=== PATIENT | female | born 1990 | race American Indian/Alaskan Native ===

== ENCOUNTER 2017-08-17 12:55 | Emergency (ER) | payer MEDICAID ==
[2017-08-17 13:07] VITALS: BP 127/90
[2017-08-17] MEDS ORDERED: TYLENOL PO ONE (13:07)
== END 2017-08-17 17:19 | disposition left against medical advice (07) ==
LOC: ED 12:55
DX: J02.9 Acute pharyngitis, unspecified (principal); Z53.21 Procedure and treatment not carried out due to patient leaving prior to being seen by health care provider

== ENCOUNTER 2017-10-18 18:22 | Emergency (ER) | payer SELFPAY ==
[2017-10-18 18:53] VITALS: BP 119/87
== END 2017-10-19 05:59 | disposition left against medical advice (07) ==
LOC: ED 18:22
DX: R10.9 Unspecified abdominal pain (principal); R51 Headache; Z53.21 Procedure and treatment not carried out due to patient leaving prior to being seen by health care provider

== ENCOUNTER 2018-04-23 05:27 | Emergency (ER) | payer SELFPAY ==
[2018-04-23 05:52] VITALS: BP 136/83
== END 2018-04-23 06:00 | disposition left against medical advice (07) ==
LOC: ED 05:27
DX: K08.89 Other specified disorders of teeth and supporting structures (principal); Z53.21 Procedure and treatment not carried out due to patient leaving prior to being seen by health care provider

== ENCOUNTER 2019-06-28 09:31 | Emergency (ER) | payer OTHER ==
[2019-06-28] MEDS ORDERED: PERCOCET 5/325 PO ONE (11:39)
[2019-06-28] MEDS ORDERED: DECADRON IM ONE (11:39)
[2019-06-28] MEDS ORDERED: FLEXERIL PO ONE (11:39)
[2019-06-28] MEDS ORDERED: NACL 0.9% 1000 ML 1,000 ML IV ONE (11:40)
--- NOTE | 2019-06-28 11:40 | Emergency Department Report ---
ED Back Pain/Injury HPI - General Chief Complaint: Neck Pain/Injury Stated Complaint: NECK PAIN Time Seen by Provider: 06/28/19 11:39 Source: patient Limitations: No Limitations - History of Present Illness Initial Comments: 28 YO COMES TO ER WITH NECK PAIN. SHE WORKS RETAIL. SHE WOKE UP THIS AM WITH STIFF PAINFUL NECK. IT HAD BEEN HURTING FOR A FEW DAYS BUT NOT THIS BAD. SPASM NOTED ON ARRIVAL TO ACC. NO FALL. NO TRAUMA. NO FEVER. AMBULATORY TOOK NOTHING AT HOME TO DEC PAIN. PAIN IS DESCRIBED TIGHT AND WORSENS WHEN SHE MOVES IT. - Related Data Previous Rx's Medication Instructions Recorded Last Taken Type Cyclobenzaprine [Flexeril] 10 mg PO TID PRN #10 tablet 06/28/19 Unknown Rx predniSONE [Deltasone] 20 mg PO DAILY #5 tablet 06/28/19 Unknown Rx Allergies Allergy/AdvReac Type Severity Reaction Status Date / Time No Known Allergies Allergy Verified 08/15/16 13:14 ED Review of Systems ROS: Stated complaint: NECK PAIN Other details as noted in HPI Comment: All other systems reviewed and negative ED Past Medical Hx - Past Medical History Medical history: no medical history ED Back Pain Physical Exam - Exam General: Vital signs noted. No distress. Alert and acting appropriately. TORTICULLIS OF NECK ON EXAM. PALPABLE SPASM NO FOCAL NEURO DEF NO FEVER NON TOXIC TAKING PO AMBULATORY S1S2 HR 90 ON EXAM LUNGS CTA ABD SOFT NON TENDER NO CVA TENDERNESS LMP 2 W AGO Back/Abdomen: No Abdominal Tenderness, No Perithoracic Tenderness, No Perilumbar Tenderness, No Sacroiliac Tenderness, No Flank Tenderness, No Straight Leg Raise Pain Neuro: Yes Normal Sensation, Yes Normal DTR's, Yes Normal Gait, No Motor Weakness ED Course Vital Signs 06/28/19 09:39 Temperature 98.4 F Pulse Rate 105 H Respiratory 18 Rate Blood Pressure 136/80 [Right] O2 Sat by Pulse 98 Oximetry ED Medical Decision Making - Lab Data Result diagrams: 06/28/19 11:45 06/28/19 11:45 - Medical Decision Making MEDICATED FOR PAIN WITH RELIEF AND FULL ROM OF THE NECK AMBULATORY TAKING PO VSS DC HOME WITH HER SISTER SHE HAS BEEN GIVEN DC FOLLOW UP WITH PCP. Vital Signs 06/28/19 09:39 Temperature 98.4 F Pulse Rate 105 H Respiratory 18 Rate Blood Pressure 136/80 [Right] O2 Sat by Pulse 98 Oximetry - Differential Diagnosis TORTICULIS Critical care attestation.: If time is entered above; I have spent that time in minutes in the direct care of this critically ill patient, excluding procedure time. ED Disposition Clinical Impression: Torticollis Disposition: DC-01 TO HOME OR SELFCARE Is pt being admited?: No Does the pt Need Aspirin: No Condition: Stable Instructions: Spasmodic Torticollis (ED) Additional Instructions: WARM BATHS AND COMPRESSES MEDS ORDERED MOTRIN AND TYLENOL OVER THE COUNTER CAN BE USED FOR MILD PAIN GET A NEW PILLOW [employer] AT WORK ACTIVITY TOLERATED- DO NOT GUARD YOUR NECK - THIS WILL MAKE IT TIGHT AGAIN. Prescriptions: predniSONE [Deltasone] 20 mg PO DAILY #5 tablet Cyclobenzaprine [Flexeril] 10 mg PO TID PRN #10 tablet PRN Reason: Muscle Spasm Referrals: MIYA SAVAGE MD [Staff Physician] - 3-5 Days Time of Disposition: 13:00
[2019-06-28 11:57] LABS: Hematocrit 39.6 % (30.3-42.9); Hemoglobin 13.3 gm/dl (10.1-14.3); Mean Corpuscular HGB Conc 34 % (30-34); Mean Corpuscular Volume 90 fl (79-97); Platelet Count 326 K/mm3 (140-440); Red Blood Count 4.41 M/mm3 (3.65-5.03); Red Cell Distribution Width 13.6 % (13.2-15.2)
[2019-06-28 12:12] LABS: BUN/Creatinine Ratio 13; Blood Urea Nitrogen 9 mg/dL (7-17); Calcium 9.4 mg/dL (8.4-10.2); Hemolysis Index 8
[2019-06-28 14:03] VITALS: BP 113/78
== END 2019-06-28 14:10 | disposition home or self-care (01) ==
LOC: ED 09:31
DX: M43.6 Torticollis (principal)
CPT/HCPCS: 36415; 80048; 84702; 85027; 96372; 99283; J1100; J7030

== ENCOUNTER 2020-12-24 09:59 | Emergency (ER) | payer SELFPAY ==
[2020-12-24] MEDS ORDERED: diphenhydrAMINE 25 MG CAP PO ONE ×2 (11:18→15:03)
[2020-12-24] MEDS ORDERED: METOCLOPRAMIDE 10 MG TAB PO ONE (11:18)
[2020-12-24] MEDS ORDERED: KETOROLAC 10 MG TAB PO ONE (11:18)
--- NOTE | 2020-12-24 11:19 | Emergency Department Report ---
ED General Adult HPI - General Chief complaint: Abdominal Pain Stated complaint: ABD PAIN Time Seen by Provider: 12/24/20 11:12 Source: patient Mode of arrival: Ambulatory Limitations: No Limitations - History of Present Illness Initial comments: Patient is a 30-year-old female presents emergency room complaints of suprapubic abdominal pain that began a couple of days ago. She states it goes between the right and the left side. She states that she is also noticed a small amount of vaginal spotting. She denies any dysuria, vaginal discharge, nausea, vomiting, diarrhea, fever, chills, back pain. She denies any concerns for STDs. She states that she has a past medical history of migraines and has a right frontal headache for the last couple of days, no vision changes, no vomiting, no neck stiffness, no fever, no numbness, no weakness, no speech disturbance, no gait disturbance. No allergies to medications. She states her last menstrual cycle was 12/06/2020. She is not on any control. She states that she had a tubal ligation 4 years ago. Severity scale (0 -10): 9 - Related Data Previous Rx's Medication Instructions Recorded Last Taken Type Cyclobenzaprine [Flexeril] 10 mg PO TID PRN #10 tablet 06/28/19 Unknown Rx predniSONE [Deltasone] 20 mg PO DAILY #5 tablet 06/28/19 Unknown Rx Ketorolac [Toradol] 10 mg PO Q8HR PRN #10 tablet 12/24/20 Unknown Rx Metoclopramide [Reglan] 10 mg PO Q8HR PRN #10 tablet 12/24/20 Unknown Rx diphenhydrAMINE [Benadryl CAP] 25 mg PO Q8HR PRN #10 capsule 12/24/20 Unknown Rx Allergies Allergy/AdvReac Type Severity Reaction Status Date / Time No Known Allergies Allergy Verified 08/15/16 13:14 ED Review of Systems ROS: Stated complaint: ABD PAIN Other details as noted in HPI Comment: All other systems reviewed and negative ED Past Medical Hx - Past Medical History Previous Medical History?: Yes Hx Hypertension: No Hx Congestive Heart Failure: No Hx Diabetes: No Hx Deep Vein Thrombosis: No Hx Renal Disease: No Hx Sickle Cell Disease: No Hx Headaches / Migraines: Yes Hx Seizures: No Hx Asthma: No Hx COPD: No Hx HIV: No - Surgical History Past Surgical History?: Yes Additional Surgical History: TUBAL LIGATION - Social History Smoking Status: Never Smoker Substance Use Type: None - Medications Home Medications: Home Medications Medication Instructions Recorded Confirmed Last Taken Type Cyclobenzaprine [Flexeril] 10 mg PO TID PRN #10 tablet 06/28/19 Unknown Rx predniSONE [Deltasone] 20 mg PO DAILY #5 tablet 06/28/19 Unknown Rx Ketorolac [Toradol] 10 mg PO Q8HR PRN #10 tablet 12/24/20 Unknown Rx Metoclopramide [Reglan] 10 mg PO Q8HR PRN #10 tablet 12/24/20 Unknown Rx diphenhydrAMINE [Benadryl CAP] 25 mg PO Q8HR PRN #10 capsule 12/24/20 Unknown Rx ED Physical Exam - General Limitations: No Limitations General appearance: alert, in no apparent distress - Head Head exam: Present: atraumatic, normocephalic - Eye Eye exam: Present: normal appearance - ENT ENT exam: Present: mucous membranes moist - Respiratory Respiratory exam: Present: normal lung sounds bilaterally. Absent: respiratory distress, wheezes, rales, rhonchi, stridor, chest wall tenderness, accessory muscle use, decreased breath sounds, prolonged expiratory - Cardiovascular Cardiovascular Exam: Present: regular rate, normal rhythm, normal heart sounds. Absent: systolic murmur, diastolic murmur, rubs, gallop - GI/Abdominal GI/Abdominal exam: Present: soft, normal bowel sounds. Absent: distended, tenderness, guarding, rebound, rigid - Neurological Exam Neurological exam: Present: alert, oriented X3, CN II-XII intact, normal gait. Absent: motor sensory deficit - Psychiatric Psychiatric exam: Present: normal affect, normal mood - Skin Skin exam: Present: warm, dry, intact ED Course Vital Signs 12/24/20 12/24/20 10:57 15:55 Temperature 98.1 F Pulse Rate 99 H 64 Respiratory 16 14 Rate Blood Pressure 127/87 112/67 [Right] O2 Sat by Pulse 100 100 Oximetry ED Medical Decision Making - Lab Data Result diagrams: 12/24/20 11:29 12/24/20 11:29 Lab Results 12/24/20 12/24/20 12/24/20 Range/Units 11:29 11:29 11:29 WBC 8.2 (4.5-11.0) K/mm3 RBC 4.18 (3.65-5.03) M/mm3 Hgb 13.4 (10.1-14.3) gm/dl Hct 37.5 (30.3-42.9) % MCV 90 (79-97) fl MCH 32 (28-32) pg MCHC 36 H (30-34) % RDW 13.1 L (13.2-15.2) % Plt Count 343 (140-440) K/mm3 Lymph % (Auto) 11.2 L (13.4-35.0) % [place] % (Auto) 5.5 (0.0-7.3) % Eos % (Auto) 0.0 (0.0-4.3) % Baso % (Auto) 0.7 (0.0-1.8) % Lymph # (Auto) 0.9 L (1.2-5.4) K/mm3 [place] # (Auto) 0.5 (0.0-0.8) K/mm3 Eos # (Auto) 0.0 (0.0-0.4) K/mm3 Baso # (Auto) 0.1 (0.0-0.1) K/mm3 Seg Neutrophils % 82.6 H (40.0-70.0) % Seg Neutrophils # 6.8 (1.8-7.7) K/mm3 Sodium 138 (137-145) mmol/L Potassium 3.5 L (3.6-5.0) mmol/L Chloride 103.3 (98-107) mmol/L Carbon Dioxide 25 (22-30) mmol/L Anion Gap 13 mmol/L BUN 8 (7-17) mg/dL Creatinine 0.7 (0.6-1.2) mg/dL Estimated GFR > 60 ml/min BUN/Creatinine Ratio 11 % Glucose 100 (65-100) mg/dL Calcium 9.2 (8.4-10.2) mg/dL Total Bilirubin 0.40 (0.1-1.2) mg/dL AST 16 (5-40) units/L ALT 12 (7-56) units/L Alkaline Phosphatase 75 (35-129) units/L Total Protein 8.0 (6.3-8.2) g/dL Albumin 4.6 (3.9-5) g/dL Albumin/Globulin Ratio 1.4 % Lipase 24 (13-60) units/L HCG, Quant < 2 (0-4) mIU/mL Urine Color (Yellow) Urine Turbidity (Clear) Urine pH (5.0-7.0) Ur Specific [place] (1.003-1.030) Urine Protein (Negative) mg/dL Urine Glucose (UA) (Negative) mg/dL Urine Ketones (Negative) mg/dL Urine Blood (Negative) Urine Nitrite (Negative) Urine Bilirubin (Negative) Urine Urobilinogen (<2.0) mg/dL Ur Leukocyte Esterase (Negative) Urine WBC (Auto) (0.0-6.0) /HPF Urine RBC (Auto) (0.0-6.0) /HPF U Epithel Cells (Auto) (0-13.0) /HPF Urine Mucus /HPF 12/24/20 Range/Units Unknown WBC (4.5-11.0) K/mm3 RBC (3.65-5.03) M/mm3 Hgb (10.1-14.3) gm/dl Hct (30.3-42.9) % MCV (79-97) fl MCH (28-32) pg MCHC (30-34) % RDW (13.2-15.2) % Plt Count (140-440) K/mm3 Lymph % (Auto) (13.4-35.0) % [place] % (Auto) (0.0-7.3) % Eos % (Auto) (0.0-4.3) % Baso % (Auto) (0.0-1.8) % Lymph # (Auto) (1.2-5.4) K/mm3 [place] # (Auto) (0.0-0.8) K/mm3 Eos # (Auto) (0.0-0.4) K/mm3 Baso # (Auto) (0.0-0.1) K/mm3 Seg Neutrophils % (40.0-70.0) % Seg Neutrophils # (1.8-7.7) K/mm3 Sodium (137-145) mmol/L Potassium (3.6-5.0) mmol/L Chloride (98-107) mmol/L Carbon Dioxide (22-30) mmol/L Anion Gap mmol/L BUN (7-17) mg/dL Creatinine (0.6-1.2) mg/dL Estimated GFR ml/min BUN/Creatinine Ratio % Glucose (65-100) mg/dL Calcium (8.4-10.2) mg/dL Total Bilirubin (0.1-1.2) mg/dL AST (5-40) units/L ALT (7-56) units/L Alkaline Phosphatase (35-129) units/L Total Protein (6.3-8.2) g/dL Albumin (3.9-5) g/dL Albumin/Globulin Ratio % Lipase (13-60) units/L HCG, Quant (0-4) mIU/mL Urine Color Yellow (Yellow) Urine Turbidity Slightly-cloudy (Clear) Urine pH 6.0 (5.0-7.0) Ur Specific [place] 1.030 (1.003-1.030) Urine Protein 30 mg/dl (Negative) mg/dL Urine Glucose (UA) Neg (Negative) mg/dL Urine Ketones 80 (Negative) mg/dL Urine Blood Neg (Negative) Urine Nitrite Neg (Negative) Urine Bilirubin Neg (Negative) Urine Urobilinogen 2.0 (<2.0) mg/dL Ur Leukocyte Esterase Neg (Negative) Urine WBC (Auto) 1.0 (0.0-6.0) /HPF Urine RBC (Auto) 9.0 (0.0-6.0) /HPF U Epithel Cells (Auto) 5.0 (0-13.0) /HPF Urine Mucus 3+ /HPF Vital Signs 12/24/20 12/24/20 10:57 15:55 Temperature 98.1 F Pulse Rate 99 H 64 Respiratory 16 14 Rate Blood Pressure 127/87 112/67 [Right] O2 Sat by Pulse 100 100 Oximetry - Radiology Data Radiology results: report reviewed Ordering Physician: TYRELL RODRIGUEZ Date of Service: 12/24/20 Procedure(s): US transvaginal Accession Number(s): [id number] cc: TYRELL RODRIGUEZ US PELVIC COMPLETE US TRANSVAGINAL INDICATION / CLINICAL INFORMATION: pelvic pain. COMPARISON: None available. FINDINGS: Uterus measures 8.5 x 4.6 x 5.2 cm. Endometrial echo complex measures approximately 12 mm. No endometrial fluid collections are seen. No uterine lesions are identified. Right ovary is unremarkable. There is a 2.6 cm simple cyst in the left ovary. Flow is seen to both ovaries. No adnexal lesions. There is scant free fluid in the cul-de-sac which is likely physiologic. IMPRESSION: 1. No significant abnormality. Endometrial echo complex measures 12 mm which is within normal limits given the patient's age. Signer Name: Michael Quiroz MD Signed: 12/24/2020 1:24 PM Workstation Name: [id number] Transcribed By: SW Dictated By: Michael Quiroz MD Electronically Authenticated By: Michael Quiroz MD Signed Date/Time: 12/24/201323 DD/ 21 TD/TT: - Medical Decision Making Patient is a 30-year-old female presents emergency room complaints of suprapubic abdominal pain that began a couple of days ago. She states it goes between the right and the left side. She states that she is also noticed a small amount of vaginal spotting. She denies any dysuria, vaginal discharge, nausea, vomiting, diarrhea, fever, chills, back pain. She denies any concerns for STDs. She states that she has a past medical history of migraines and has a right frontal headache for the last couple of days, no vision changes, no vomiting, no neck stiffness, no fever, no numbness, no weakness, no speech disturbance, no gait disturbance. No allergies to medications. She states her last menstrual cycle was 12/06/2020. She is not on any control. She states that she had a tubal ligation 4 years ago. Vitals are normal. No abdominal tenderness on exam, no focal neuro deficits, no meningeal signs. Labs are normal. UA is within normal limits. Pelvic ultrasound: 1. No significant abnormality. Endom etrial echo complex measures 12 mm which is within normal limits given the patient's age. Patient given p.o. medications and symptoms significantly improved and she was feeling much better and ready to go home. Symptoms could be related to ovulation. Will refer patient to [facility] regarding bleeding between cycles. Patient's headache has resolved. It appears patient is most likely having cluster headaches as she has pain around the right eye with tearing and rhinorrhea. Given prescription for Benadryl, Reglan, Toradol. Advised patient please take medication as prescribed. increase your water intake. follow up with a primary care doctor. follow up with an FOREIGN CLERK. return to the emergency room for any new or worsening symptoms. - Differential Diagnosis Ovarian cyst, UTI, endometriosis, uterine fibroids, migraine, cluster ESCUDERO Critical care attestation.: If time is entered above; I have spent that time in minutes in the direct care of this critically ill patient, excluding procedure time. ED Disposition Clinical Impression: Pelvic pain, Abnormal uterine bleeding (AUB) Ovarian cyst Qualifiers: Laterality: left Qualified Code(s): N83.202 - Unspecified ovarian cyst, left side Headache Qualifiers: Headache type: unspecified Headache chronicity pattern: acute headache Intractability: not intractable Qualified Code(s): R51.9 - Headache, unspecified Disposition: TO HOME OR SELFCARE Is pt being admited?: No Does the pt Need Aspirin: No Condition: Stable Instructions: Cluster Headache, Ovarian Cyst, Abnormal Uterine Bleeding, [id number], Abdominal Pain (ED) Additional Instructions: please take medication as prescribed. increase your water intake. follow up with a primary care doctor. follow up with an FOREIGN CLERK. return to the emergency room for any new or worsening symptoms. Prescriptions: diphenhydrAMINE [Benadryl CAP] 25 mg PO Q8HR PRN #10 capsule PRN Reason: headache Metoclopramide [Reglan] 10 mg PO Q8HR PRN #10 tablet PRN Reason: headache Ketorolac [Toradol] 10 mg PO Q8HR PRN #10 tablet PRN Reason: pain/headache Referrals: PRIMARY CAREMD [Primary Care Provider] - 2-3 Days REUBEN CALVERT MD [Staff Physician] - 2-3 Days [facility] [Provider Group] - 2-3 Days [facility] [Provider Group] - 2-3 Days Time of Disposition: 15:40 Print Language: BARBADIAN
[2020-12-24 12:17] LABS: Basophils # (Auto) 0.1 K/mm3 (0.0-0.1); Basophils % (Auto) 0.7 % (0.0-1.8); Hematocrit 37.5 % (30.3-42.9); Hemoglobin 13.4 gm/dl (10.1-14.3); Lymphocytes # (Auto) 0.9 K/mm3 (1.2-5.4); Lymphocytes % (Auto) 11.2 % (13.4-35.0); Mean Corpuscular HGB Conc 36 % (30-34); Mean Corpuscular Volume 90 fl (79-97); Monocytes # (Auto) 0.5 K/mm3 (0.0-0.8); Monocytes % (Auto) 5.5 % (0.0-7.3); Platelet Count 343 K/mm3 (140-440); Red Blood Count 4.18 M/mm3 (3.65-5.03); Red Cell Distribution Width 13.1 % (13.2-15.2)
[2020-12-24 12:40] LABS: Alanine Aminotransferase 12 units/L (7-56); Albumin 4.6 g/dL (3.9-5); Blood Urea Nitrogen 8 mg/dL (7-17); Calcium 9.2 mg/dL (8.4-10.2); Hemolysis Index 6
[2020-12-24 13:03] LABS: BUN/Creatinine Ratio 11
--- NOTE | 2020-12-24 13:28 | Ultrasound Report ---
US PELVIC COMPLETE US TRANSVAGINAL INDICATION / CLINICAL INFORMATION: pelvic pain. COMPARISON: None available. FINDINGS: Uterus measures 8.5 x 4.6 x 5.2 cm. Endometrial echo complex measures approximately 12 mm. No endomet rial fluid collections are seen. No uterine lesions are identified. Right ovary is unremarkable. There is a 2.6 cm simple cyst in the left ovary. Flow is seen to both ov ynes. No adnexal lesions. There is scant free fluid in the cul-de-sac which is likely physiologic. IMPRESSION: 1. No significant abnormality. Endometrial echo complex measures 12 mm which is within normal limits given the patient's age. Signer Name: Michael Quiroz MD Signed: 12/24/2020 1:24 PM Workstation Name: [id number]
[2020-12-24] MEDS ORDERED: METOCLOPRAMIDE 10 MG/2 ML INJ ONE (15:02)
[2020-12-24] MEDS ORDERED: KETOROLAC 10 MG TAB ONE (15:03)
[2020-12-24] MEDS ORDERED: METOCLOPRAMIDE 10 MG TAB ONE (15:05)
[2020-12-24 15:30] LABS: Bilirubin,Urine NEG (Negative); Blood,Urine NEG (Negative); Color,Urine Yellow (Yellow); Mucus,Urine 3+ /HPF
[2020-12-24 15:56] VITALS: BP 112/67
== END 2020-12-24 16:23 | disposition home or self-care (01) ==
LOC: ED 09:59
DX: N93.9 Abnormal uterine and vaginal bleeding, unspecified (principal); N83.202 Unspecified ovarian cyst, left side; R51.9 Headache, unspecified; R10.2 Pelvic and perineal pain; Z79.899 Other long term (current) drug therapy; Z98.51 Tubal ligation status
CPT/HCPCS: 36415; 76830; 76856; 80053; 81001; 83690; 84702; 85025; J2765

== ENCOUNTER 2021-03-25 10:21 | Emergency (ER) | payer MEDICAID ==
[2021-03-25 12:10] VITALS: BP 110/83
--- NOTE | 2021-03-25 14:26 | XRay Report ---
RIGHT HAND 4 VIEW(S) INDICATION / CLINICAL INFORMATION: lateral pain, bruising, hit wall COMPARISON: None available. FINDINGS: BONES / JOINT(S): No acute fracture or subluxation. No significant arthritis. SOFT TISSUES: Mild soft tissue swelling over the dorsum of the hand. ADDITIONAL FINDINGS: None. Signer Name: Evens Osorio MD Signed: 03/25/2021 2:21 PM Workstation Name: [id number]
[2021-03-25] MEDS ORDERED: ACETAMINOPHEN 325 MG TAB PO ONE (14:50)
[2021-03-25] MEDS ORDERED: IBUPROFEN 800 MG TAB PO ONE (14:50)
--- NOTE | 2021-03-25 14:54 | Emergency Department Report ---
ED General Adult HPI - General Chief complaint: Extremity Injury, Upper Stated complaint: RT HAND INJURY Time Seen by Provider: 03/25/21 13:49 Source: patient Mode of arrival: Ambulatory Limitations: No Limitations - History of Present Illness Initial comments: 30-year-old -Italian female patient presents with complaints of right hand pain after punching a wall last night. She rates her pain as 8/10 in severity and states it worsens with movement. She reports there is some swelling, but denies any numbness or tingling to the hand. No lacerations or redness per patient. - Related Data Previous Rx's Medication Instructions Recorded Last Taken Type Cyclobenzaprine [Flexeril] 10 mg PO TID PRN #10 tablet 06/28/19 Unknown Rx predniSONE [Deltasone] 20 mg PO DAILY #5 tablet 06/28/19 Unknown Rx Ketorolac [Toradol] 10 mg PO Q8HR PRN #10 tablet 12/24/20 Unknown Rx Metoclopramide [Reglan] 10 mg PO Q8HR PRN #10 tablet 12/24/20 Unknown Rx diphenhydrAMINE [Benadryl CAP] 25 mg PO Q8HR PRN #10 capsule 12/24/20 Unknown Rx Acetaminophen/Codeine [Tylenol 1 tab PO Q8H PRN #6 tab 03/25/21 Unknown Rx /Codeine # 3 tab] Ibuprofen [Motrin 800 MG tab] 800 mg PO Q8HR PRN #20 tablet 03/25/21 Unknown Rx Allergies Allergy/AdvReac Type Severity Reaction Status Date / Time No Known Allergies Allergy Verified 08/15/16 13:14 ED Review of Systems ROS: Stated complaint: RT HAND INJURY Other details as noted in HPI Constitutional: denies: chills, fever, malaise Cardiovascular: denies: chest pain Musculoskeletal: joint swelling, arthralgia Skin: denies: rash, lesions, change in color Hematological/Lymphatic: denies: swollen glands ED Past Medical Hx - Past Medical History Hx Hypertension: No Hx Congestive Heart Failure: No Hx Diabetes: No Hx Deep Vein Thrombosis: No Hx Renal Disease: No Hx Sickle Cell Disease: No Hx Headaches / Migraines: Yes Hx Seizures: No Hx Asthma: No Hx COPD: No Hx HIV: No - Surgical History Additional Surgical History: TUBAL LIGATION - Social History Smoking Status: Never Smoker Substance Use Type: Alcohol - Medications Home Medications: Home Medications Medication Instructions Recorded Confirmed Last Taken Type Cyclobenzaprine [Flexeril] 10 mg PO TID PRN #10 tablet 06/28/19 Unknown Rx predniSONE [Deltasone] 20 mg PO DAILY #5 tablet 06/28/19 Unknown Rx Ketorolac [Toradol] 10 mg PO Q8HR PRN #10 tablet 12/24/20 Unknown Rx Metoclopramide [Reglan] 10 mg PO Q8HR PRN #10 tablet 12/24/20 Unknown Rx diphenhydrAMINE [Benadryl CAP] 25 mg PO Q8HR PRN #10 capsule 12/24/20 Unknown Rx Acetaminophen/Codeine [Tylenol 1 tab PO Q8H PRN #6 tab 03/25/21 Unknown Rx /Codeine # 3 tab] Ibuprofen [Motrin 800 MG tab] 800 mg PO Q8HR PRN #20 tablet 03/25/21 Unknown Rx ED Physical Exam - General Limitations: No Limitations General appearance: alert, in no apparent distress - Head Head exam: Present: atraumatic, normocephalic - Eye Eye exam: Present: normal appearance - Respiratory Respiratory exam: Absent: respiratory distress - Cardiovascular Cardiovascular Exam: Present: regular rate - Expanded Upper Extremity Exam Right Hand Wrist exam: Present: full ROM, tenderness (Fifth metacarpal), swelling (Fifth metacarpal) Neuro motor exam: Present: wrist extension intact, thumb adduction intact Vascular: Absent: vascular compromise - Neurological Exam Neurological exam: Present: alert, oriented X3, normal gait - Psychiatric Psychiatric exam: Present: normal affect, normal mood - Skin Skin exam: Present: warm, dry, intact, normal color. Absent: rash ED Course Vital Signs 03/25/21 12:05 Temperature 98 F Pulse Rate 76 Respiratory 20 Rate Blood Pressure 110/83 O2 Sat by Pulse 100 Oximetry ED Medical Decision Making - Radiology Data Radiology results: report reviewed RIGHT HAND 4 VIEW(S) INDICATION / CLINICAL INFORMATION: lateral pain, bruising, hit wall COMPARISON: None available. FINDINGS: BONES / JOINT(S): No acute fracture or subluxation. No significant arthritis. SOFT TISSUES: Mild soft tissue swelling over the dorsum of the hand. ADDITIONAL FINDINGS: None. - Medical Decision Making 30-year-old -Italian female patient presents with complaints of right hand pain after punching a wall last night. She rates her pain as 8/10 in severity and states it worsens with movement. She reports there is some swelling, but denies any numbness or tingling to the hand. No lacerations or redness per patient. X-rays negative for any acute bony abnormalities. Patient placed in an ulnar gutter splint for sprain of the hand. Recommend follow-up with orthopedics as needed. Strict return precautions discussed in detail with patient who verbalizes understanding. Critical care attestation.: If time is entered above; I have spent that time in minutes in the direct care of this critically ill patient, excluding procedure time. ED Disposition Clinical Impression: Hand injury Disposition: - TO HOME OR SELFCARE Is pt being admited?: No Condition: Stable Instructions: Intermetacarpal Sprain Prescriptions: Ibuprofen [Motrin 800 MG tab] 800 mg PO Q8HR PRN #20 tablet PRN Reason: pain Acetaminophen/Codeine [Tylenol /Codeine # 3 tab] 1 tab PO Q8H PRN #6 tab PRN Reason: Pain , Severe (7-10) Referrals: SANGEETA REID MD [Staff Physician] - 3-5 Days Forms: Work/School Release Form(ED)
== END 2021-03-25 14:30 | disposition home or self-care (01) ==
LOC: ED 10:21
DX: S69.91XA Unspecified injury of right wrist, hand and finger(s), initial encounter (principal); G43.909 Migraine, unspecified, not intractable, without status migrainosus; Z98.51 Tubal ligation status; Z79.1 Long term (current) use of non-steroidal anti-inflammatories (NSAID); Z79.899 Other long term (current) drug therapy; W22.8XXA Striking against or struck by other objects, initial encounter; Y93.89 Activity, other specified; Y92.89 Other specified places as the place of occurrence of the external cause; Y99.8 Other external cause status